=== PATIENT | male | born 1990 | race Hispanic/Latino ===

== ENCOUNTER 2025-01-20 02:54 | Emergency (ER) | payer OTHER ==
[~2025-01-20] VITALS: Ht 157.5 cm; Wt 61.2 kg
[2025-01-20 03:54] LABS: APPEARANCE,URINE CLEAR (CLEAR); BILIRUBIN,URINE NEGATIVE (NEGATIVE); COLOR,URINE YELLOW (YELLOW); GLUCOSE, URINE (UA) NEGATIVE (NEGATIVE); KETONES,URINE NEGATIVE (NEGATIVE); LEUKOCYTE ESTERASE ,URINE NEGATIVE Leu/uL (NEGATIVE); NITRATE,URINE NEGATIVE (NEGATIVE); OCCULT BLOOD,URINE NEGATIVE (NEGATIVE); PROTEIN,URINE 30 mg/dL (NEGATIVE); UROBILINOGEN,URINE 0.2 mg/dL (0.2-1.0)
[2025-01-20 03:57] LABS: ADD UA MICROSCOPIC YES
[2025-01-20 03:58] LABS: BASOPHILS # (AUTO) 0.04 K/uL (0.00-0.20); BASOPHILS % (AUTO) 0.5 % (0.0-5.0); EOSINOPHILS # (AUTO) 0.03 K/uL (0.00-0.70); EOSINOPHILS % (AUTO) 0.4 % (0.0-8.0); HEMATOCRIT 46.9 % (42-54); IMMATURE GRANULOCYTE ABSOLUTE 0.03 K/uL (0-1); LYMPHOCYTES # (AUTO) 1.5 K/uL (1.0-4.8); LYMPHOCYTES % (AUTO) 18.1 % (21.0-51.0); MEAN CORPUSCULAR HEMOGLOBIN 30.3 pg (27.0-33.0); MEAN CORPUSCULAR VOLUME 86.7 fL (79-99); MONOCYTES # (AUTO) 0.6 K/uL (0.1-1.0); MONOCYTES % (AUTO) 7.2 % (3.0-13.0); MUCUS,URINE RARE LPF (None Seen); NEUTROPHILS # (AUTO) 6.2 K/uL (1.8-7.7); NEUTROPHILS % (AUTO) 73.4 % (40.0-77.0); PLATELET COUNT (AUTO) 228 K/uL (130-400); RBC,URINE 0-1 /HPF (0-1); RED BLOOD CELL COUNT(AUTO) 5.41 MIL/uL (4.50-6.20); RED CELL DISTRIBUTION WIDTH 12.7 % (11.0-15.5); SQUAMOUS EPITHELIAL CELL,UR RARE /HPF (0-2); WBC,URINE 0-1 /HPF (0-1); WHITE BLOOD COUNT (AUTO) 8.5 K/uL (4.8-10.8)
[2025-01-20 04:01] LABS: AMPHET/METH SCREEN,URINE POSITIVE (NEGATIVE); BARBITURATE SCREEN, URINE NEGATIVE (NEGATIVE); BENZODIAZEPINES SCREEN,URINE NEGATIVE (NEGATIVE); CANNABINOID SCREEN,URINE NEGATIVE (NEGATIVE); COCAINE SCREEN,URINE POSITIVE (NEGATIVE); OPIATE SCREEN,URINE NEGATIVE (NEGATIVE); PHENCYCLIDINE SCREEN,URINE NEGATIVE (NEGATIVE)
[2025-01-20 04:07] LABS: CREATININE 0.8 mg/dL (0.5-1.3); POTASSIUM 3.5 mmol/L (3.5-5.1)
[2025-01-20 04:12] LABS: ALBUMIN 4.1 g/dL (3.5-5.0); BILIRUBIN,TOTAL 0.7 mg/dL (0.2-1.0); TOTAL PROTEIN, SERUM 8.8 g/dL (6.0-8.3)
--- NOTE | 2025-01-20 05:18 | HMCIMG ---
EXAM: CR Right Forearm, 2 views. CLINICAL HISTORY: Pain. COMPARISON: None provided. FINDINGS: No acute fracture or aggressive appearing osseous lesion. The joint spaces are within normal limits. The soft tissues are unremarkable. IMPRESSION: No acute bony abnormality is evident. /[place]
--- NOTE | 2025-01-20 05:20 | HMCIMG ---
EXAM: CR Right Elbow, 3 views. CLINICAL HISTORY: Pain. COMPARISON: None provided. FINDINGS: No acute fracture or aggressive appearing osseous lesion. Joint spaces are within normal limits. No radiographic evidence of joint effusion. The soft tissues are unremarkable. IMPRESSION: No acute bony abnormality is evident. /[place]
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
[2025-01-20] MEDS: DiphenhydrAMINE HCL 50 MG/ML VIAL ONE (07:37)
[2025-01-20] MEDS: DiphenhydrAMINE HCL 50 MG/ML VIAL IM ONE (07:39)
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
[2025-01-20] MEDS: 0.9%NACL 1000ML 1,000 ML IV ONE (09:09)
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
[2025-01-20 11:43] VITALS: BP 133/63; PULSE 80; RESP 16; TEMP 98.2; O2SAT 99
== END 2025-01-20 12:10 | disposition home or self-care (01) ==
LOC: EDH 02:54
DX: M79.601 Pain in right arm (principal); V89.2XXA Person injured in unspecified motor-vehicle accident, traffic, initial encounter; Y93.89 Activity, other specified; Y92.89 Other specified places as the place of occurrence of the external cause; Y99.8 Other external cause status
CPT/HCPCS: 99285; 70450; 96360; 80053; 80305; 85025; 81001; 36415; 73080; 73090; 72125; 96372; J1200; J7030

== ENCOUNTER 2025-01-21 00:05 | Emergency (ER) | payer SELFPAY ==
[~2025-01-21] VITALS: Ht 157.5 cm; Wt 59.0 kg
--- NOTE | 2025-01-21 00:48 | NUR ---
PT PROVIDED DRIVERS LICENSE WHICH LISTS AN ADDRESS IN [place], [place]. CALLED [facility] [employer] PER DR. BROOKS RECOMMENDATION AND WAS GIVEN AN EMERGENCY CONTACT, ИРИНА NUNO [phone]. PT GAVE PERMISSION TO CONTACT ИРИНА NUNO WHO HE STATES IS HIS . NOTIFIED ИРИНА NUNO THAT THE PT IS IN THE ER, SHE STATES SHE WILL DRIVE TO THE HOSPITAL TO BE WITH THE PATIENT.
--- NOTE | 2025-01-21 01:15 | NUR ---
PT GIVEN SANDWICHES AND JUICES.
--- NOTE | 2025-01-21 01:15 | NUR ---
PER DR. BROOKS IV FLUIDS ARE ON HOLD TILL FURTHER NOTICE.
[2025-01-21 01:18] LABS: HEMATOCRIT 46.8 % (42-54); MEAN CORPUSCULAR HEMOGLOBIN 30.8 pg (27.0-33.0); MEAN CORPUSCULAR VOLUME 90.5 fL (79-99); PLATELET COUNT (AUTO) 243 K/uL (130-400); RED BLOOD CELL COUNT(AUTO) 5.17 MIL/uL (4.50-6.20); RED CELL DISTRIBUTION WIDTH 12.7 % (11.0-15.5); WHITE BLOOD COUNT (AUTO) 8.6 K/uL (4.8-10.8)
[2025-01-21 01:27] LABS: BASOPHILS # (AUTO) 0.05 K/uL (0.00-0.20); BASOPHILS % (AUTO) 0.6 % (0.0-5.0); EOSINOPHILS # (AUTO) 0.07 K/uL (0.00-0.70); EOSINOPHILS % (AUTO) 0.8 % (0.0-8.0); IMMATURE GRANULOCYTE ABSOLUTE 0.02 K/uL (0-1); LYMPHOCYTES # (AUTO) 2.2 K/uL (1.0-4.8); LYMPHOCYTES % (AUTO) 25.1 % (21.0-51.0); MONOCYTES # (AUTO) 0.8 K/uL (0.1-1.0); MONOCYTES % (AUTO) 8.7 % (3.0-13.0); NEUTROPHILS # (AUTO) 5.6 K/uL (1.8-7.7); NEUTROPHILS % (AUTO) 64.6 % (40.0-77.0)
[2025-01-21 01:30] LABS: CREATININE 0.8 mg/dL (0.5-1.3); POTASSIUM 3.4 mmol/L (3.5-5.1)
[2025-01-21 01:36] LABS: ALBUMIN 3.8 g/dL (3.5-5.0); BILIRUBIN,TOTAL 0.8 mg/dL (0.2-1.0)
[2025-01-21] MEDS: LACTATED RINGERS 1000ML 639 ML IV ONE (01:45)
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
[2025-01-21 02:35] VITALS: BP 117/68; PULSE 74; RESP 17; TEMP 97.1; O2SAT 100
--- NOTE | 2025-01-21 02:37 | NUR ---
PT DISCHARGED TO CARE OF SPOUSE.
== END 2025-01-21 02:37 | disposition home or self-care (01) ==
LOC: EDH 00:05
DX: F44.0 Dissociative amnesia (principal)
CPT/HCPCS: 36415; 80053; 85025; 99283